=== PATIENT | female | born 1985 | race Hispanic/Latino ===

== ENCOUNTER 2018-09-06 08:59 | Day surgery (SDC) | payer BC ==
[2018-09-05 16:09] VITALS: BP 142/80
[2018-09-05 16:13] LABS: APPEARANCE,URINE CLOUDY (CLEAR); BILIRUBIN,URINE NEGATIVE (NEGATIVE); COLOR,URINE ORANGE (YELLOW); GLUCOSE, URINE (UA) 100 mg/dL (NEGATIVE); KETONES,URINE NEGATIVE (NEGATIVE); LEUKOCYTE ESTERASE ,URINE MODERATE (NEGATIVE); NITRATE,URINE POSITIVE (NEGATIVE); OCCULT BLOOD,URINE LARGE (NEGATIVE); PH,URINE 6.5 (5.0-8.0); PROTEIN,URINE >=300 (NEGATIVE)
[2018-09-05 16:20] LABS: RBC,URINE TNTC /HPF (0-1)
[2018-09-05 16:21] LABS: BACTERIA,URINE Rare /HPF (None Seen); SQUAMOUS EPITHELIAL CELL,UR Rare /HPF (0-2)
[2018-09-06] VITALS (16 sets, daily range): BP systolic 97–129; BP diastolic 59–82
[~2018-09-06] VITALS: Ht 167.6 cm; Wt 96.5 kg
[2018-09-06] MEDS: CEFTRIAXONE SODIUM 1 GM IVP SCH ×2 (09:00→10:45)
[2018-09-06] MEDS ORDERED: ONDANSETRON HCL 4 MG/2 ML VIAL ONE ×2 (09:08→10:47)
[2018-09-06] MEDS ORDERED: MIDAZOLAM HCL 1 MG/ML 2ML VIAL ONE (09:08)
[2018-09-06] MEDS ORDERED: DEXAMETHASONE SOD PHOSPHATE 10MG/ML 1ML VIAL ONE (09:08)
[2018-09-06] MEDS ORDERED: FENTANYL CITRATE PF 50 MCG/1 ML 2ML VIAL ONE ×2 (09:08→10:59)
[2018-09-06] MEDS ORDERED: PROPOFOL 10 MG/ML 20ML VIAL IV ONE (09:08)
[2018-09-06] MEDS ORDERED: LIDOCAINE PF 2% 5ML ABBOJECT ONE (09:08)
[2018-09-06] MEDS ORDERED: LACTATED RINGERS 1000ML 1,000 ML IV ONE (09:26)
[2018-09-06] MEDS ORDERED: TRAM50TA4 PO (09:42)
[2018-09-06] MEDS ORDERED: IOHEXOL-350 50ML VIAL IV ONE (10:02)
[2018-09-06] MEDS ORDERED: ROCURONIUM BROMIDE 10MG/1ML 5ML VL ONE (11:51)
[2018-09-06] MEDS ORDERED: TRAMADOL HCL 50 MG TABLET ONE (13:19)
[2018-09-06] MEDS ORDERED: TRAMADOL HCL 50 MG TABLET PO SCH (13:30)
== END 2018-09-06 13:47 | disposition home or self-care (01) ==
LOC: DAH 08:59
PROVIDERS: ATTEND Urology
DX: N20.2 Calculus of kidney with calculus of ureter (principal); I10 Essential (primary) hypertension; Z98.890 Other specified postprocedural states; Z88.2 Allergy status to sulfonamides; Z88.8 Allergy status to other drugs, medicaments and biological substances; Z82.49 Family history of ischemic heart disease and other diseases of the circulatory system; Z83.3 Family history of diabetes mellitus
CPT/HCPCS: 52356; 74018; 76000; 81001; 81025; 87088; A4218; A4354; A4358; A4600; A4649; A6207; C1758; C1769; C1894; C2617; J0696; J1100; J2001; J2250; J2405 ×2; J2704; J3010 ×2; J3490; J7120 ×2; Q9967

== ENCOUNTER 2019-08-20 21:45 | Inpatient (IN) | payer BC, OTHER ==
[~2019-08-20] VITALS: Ht 167.6 cm; Wt 103.9 kg
[~2019-08-20 21:45] MED LIST: TRAM50TA4 PO
[2019-08-20] MEDS ORDERED: SODIUM CHLORIDE 0.9% 1000ML 1,000 ML IV ONE (22:46)
[2019-08-20] MEDS ORDERED: ONDANSETRON HCL 4 MG/2 ML VIAL ONE (22:46)
[2019-08-20] MEDS ORDERED: MORPHINE SULFATE 4 MG/1ML SYG ONE (22:47)
[2019-08-20 22:55] LABS: APPEARANCE,URINE Cloudy (CLEAR); BILIRUBIN,URINE Negative (NEGATIVE); COLOR,URINE Yellow (YELLOW); GLUCOSE, URINE (UA) Negative (NEGATIVE); KETONES,URINE Negative (NEGATIVE); LEUKOCYTE ESTERASE ,URINE Moderate (NEGATIVE); NITRATE,URINE Negative (NEGATIVE); OCCULT BLOOD,URINE Large (NEGATIVE); PROTEIN,URINE POS 1+ mg/dL (NEGATIVE); UROBILINOGEN,URINE 0.2 mg/dL (0.2-1.0)
[2019-08-20 22:57] LABS: BASOPHILS % (AUTO) 0.2 % (0.0-5.0); CREATININE 1.4 mg/dL (0.5-1.5); HEMATOCRIT 40.4 % (36-48); LYMPHOCYTES % (AUTO) 10.4 % (21.0-51.0); MEAN CORPUSCULAR HGB CONC 34.4 g/dL (32.0-36.0); MEAN CORPUSCULAR VOLUME 90.2 fL (79-99); MONOCYTES % (AUTO) 6.5 % (3.0-13.0); NEUTROPHILS % (AUTO) 81.9 % (40.0-77.0); PLATELET COUNT (AUTO) 296 K/uL (130-400); POTASSIUM 3.7 mmol/L (3.5-5.1); RED BLOOD CELL COUNT(AUTO) 4.48 MIL/uL (4.00-5.50); RED CELL DISTRIBUTION WIDTH 13.5 % (11.0-15.5); WHITE BLOOD COUNT (AUTO) 14.2 K/uL (4.8-10.8)
[2019-08-20 23:01] LABS: ALBUMIN 3.8 g/dL (3.5-5.0); BILIRUBIN,TOTAL 0.4 mg/dL (0.2-1.0); TOTAL PROTEIN, SERUM 7.5 g/dL (6.0-8.3)
[2019-08-20 23:04] LABS: BACTERIA,URINE Rare /HPF (None Seen); MUCUS,URINE Few LPF (None Seen); SQUAMOUS EPITHELIAL CELL,UR Rare /HPF (0-2)
[2019-08-20] MEDS ORDERED: CEFTRIAXONE SODIUM 1 GM ONE (23:43)
[2019-08-20] MEDS ORDERED: KETOROLAC TROMETHAMINE 15MG/ML ONE (23:44)
[2019-08-21] VITALS (22 sets, daily range): BP systolic 108–136; BP diastolic 66–90
[2019-08-21] MEDS ORDERED: ACETAMINOPHEN 325 MG TAB PO PRN ×2 (01:00)
[2019-08-21] MEDS ORDERED: LACTULOSE 20 GM/30 ML UDCUP PO PRN (01:00)
[2019-08-21] MEDS ORDERED: SODIUM CHLORIDE 0.9% 1000ML 1,000 ML IV ONE (02:08)
[2019-08-21] MEDS ORDERED: MORPHINE SULFATE 4 MG/1ML SYG ONE (04:55)
[2019-08-21 04:57] LABS: BASOPHILS % (AUTO) 0.4 % (0.0-5.0); EOSINOPHILS % (AUTO) 0.8 % (0.0-8.0); HEMATOCRIT 35.2 % (36-48); LYMPHOCYTES % (AUTO) 14.4 % (21.0-51.0); MEAN CORPUSCULAR HEMOGLOBIN 31.5 pg (27.0-33.0); MEAN CORPUSCULAR VOLUME 89.9 fL (79-99); MONOCYTES % (AUTO) 6.9 % (3.0-13.0); NEUTROPHILS % (AUTO) 77.5 % (40.0-77.0); PLATELET COUNT (AUTO) 266 K/uL (130-400); RED BLOOD CELL COUNT(AUTO) 3.92 MIL/uL (4.00-5.50); RED CELL DISTRIBUTION WIDTH 13.2 % (11.0-15.5); WHITE BLOOD COUNT (AUTO) 11.4 K/uL (4.8-10.8)
[2019-08-21 05:11] LABS: CREATININE 1.3 mg/dL (0.5-1.5); POTASSIUM 4.1 mmol/L (3.5-5.1)
[2019-08-21] MEDS ORDERED: ONDANSETRON HCL 4 MG/2 ML VIAL ONE ×2 (05:19→19:20)
[2019-08-21] MEDS: FAMOTIDINE/PF 20 MG/2 ML VIAL IV SCH ×2 (08:16→21:53)
[2019-08-21] MEDS: ENOXAPARIN SODIUM 40 MG/0.4 ML SYRINGE SQ SCH (08:17)
[2019-08-21] MEDS: MORPHINE SULFATE 4 MG/1ML SYG IV PRN (08:17)
[2019-08-21] MEDS: SODIUM CHLORIDE 0.9% 1000ML 1,000 ML IV SCH ×3 (08:17→22:04)
--- NOTE | 2019-08-21 11:08 | NUR ---
DCP CM met with pt discussed dc plans. Pt is independent prior to admission, lives at home w/spouse. Denies any equipments/services. Feels safe to go back home, still works and drives, spouse able to assist with transportation and needs as necessary. DC plan to home once stable. CM to cont to follow up. Addendum: 08/21/19 at 1109 by TONNY FREY LVN CM Amended: Links added.
[2019-08-21] MEDS ORDERED: IOHEXOL-350 50ML VIAL IV ONE (19:08)
[2019-08-21] MEDS ORDERED: MIDAZOLAM HCL 1 MG/ML 2ML VIAL ONE (19:20)
[2019-08-21] MEDS ORDERED: LIDOCAINE PF 2% 5ML ABBOJECT ONE (19:20)
[2019-08-21] MEDS ORDERED: PROPOFOL 10 MG/ML 20ML VIAL IV ONE (19:21)
[2019-08-21] MEDS ORDERED: FENTANYL CITRATE PF 50 MCG/1 ML 2ML VIAL ONE (19:21)
[2019-08-21] MEDS: TAMSULOSIN HCL 0.4 MG CAP.ER.24H PO SCH (21:00)
[2019-08-21] MEDS: VANCOMYCIN 1GM+NS 250ML 250 ML IV SCH (21:53)
[2019-08-21] MEDS ORDERED: CEFTRIAXONE SODIUM 1 GM IVP SCH (23:00)
[2019-08-22] VITALS (8 sets, daily range): BP systolic 108–130; BP diastolic 69–85
[2019-08-22] MEDS: MORPHINE SULFATE 4 MG/1ML SYG IV PRN ×5 (02:01→21:22)
[2019-08-22] MEDS: ONDANSETRON HCL 4 MG/2 ML VIAL IV PRN ×3 (02:05→16:45)
[2019-08-22] MEDS: SODIUM CHLORIDE 0.9% 1000ML 1,000 ML IV SCH ×4 (06:17→23:37)
[2019-08-22] MEDS: ENOXAPARIN SODIUM 40 MG/0.4 ML SYRINGE SQ SCH (09:00)
[2019-08-22] MEDS: FAMOTIDINE/PF 20 MG/2 ML VIAL IV SCH ×2 (10:25→21:22)
[2019-08-22] MEDS: VANCOMYCIN 1GM+NS 250ML 250 ML IV SCH (10:25)
[2019-08-22] MEDS: TAMSULOSIN HCL 0.4 MG CAP.ER.24H PO SCH (10:25)
[2019-08-22] MEDS: AMPICILLIN 2GM+NS 100ML 100 ML IV SCH ×2 (15:16→21:22)
[2019-08-23] MEDS: AMPICILLIN 2GM+NS 100ML 100 ML IV SCH ×4 (01:15→18:53)
[2019-08-23 03:40] VITALS: BP 136/85
[2019-08-23] MEDS: SODIUM CHLORIDE 0.9% 1000ML 1,000 ML IV SCH ×2 (06:10→13:08)
[2019-08-23 07:44] VITALS: BP 125/78
[2019-08-23] MEDS: ONDANSETRON HCL 4 MG/2 ML VIAL IV PRN ×2 (07:47→13:24)
[2019-08-23] MEDS: FAMOTIDINE/PF 20 MG/2 ML VIAL IV SCH ×2 (07:47→21:00)
[2019-08-23] MEDS: MORPHINE SULFATE 4 MG/1ML SYG IV PRN ×2 (07:48→13:31)
[2019-08-23] MEDS: TAMSULOSIN HCL 0.4 MG CAP.ER.24H PO SCH (07:48)
[2019-08-23] MEDS: ENOXAPARIN SODIUM 40 MG/0.4 ML SYRINGE SQ SCH (09:00)
[2019-08-23 11:00] VITALS: BP 108/64
--- NOTE | 2019-08-23 11:26 | NUR ---
I have left a message at dr Cantu office in regards to possible d/c or 2nd surgery for removal of stones pending call back
--- NOTE | 2019-08-23 13:37 | NUR ---
lovenox not given due to pt being on her menses and bleeding heavily at this time
[2019-08-23 16:00] VITALS: BP 138/78
[2019-08-23 20:00] VITALS: BP 130/82
[2019-08-23] MEDS: HYDROCODONE/ACETAMINOPHEN 5/325 MG TAB PO PRN (22:21)
[2019-08-24] VITALS (7 sets, daily range): BP systolic 111–163; BP diastolic 67–96
[2019-08-24] MEDS: AMPICILLIN 2GM+NS 100ML 100 ML IV SCH ×4 (00:57→18:23)
[2019-08-24 05:10] LABS: BASOPHILS % (AUTO) 0.8 % (0.0-5.0); EOSINOPHILS % (AUTO) 4.8 % (0.0-8.0); HEMATOCRIT 28.6 % (36-48); LYMPHOCYTES % (AUTO) 26.2 % (21.0-51.0); MEAN CORPUSCULAR HEMOGLOBIN 31.9 pg (27.0-33.0); MEAN CORPUSCULAR HGB CONC 34.6 g/dL (32.0-36.0); MEAN CORPUSCULAR VOLUME 92.1 fL (79-99); MONOCYTES % (AUTO) 10.9 % (3.0-13.0); NEUTROPHILS % (AUTO) 57.3 % (40.0-77.0); NUCLEATED RED BLOOD CELLS 0.1 % (0.0-0.19); PLATELET COUNT (AUTO) 184 K/uL (130-400); WHITE BLOOD COUNT (AUTO) 4.8 K/uL (4.8-10.8)
[2019-08-24 05:11] LABS: POTASSIUM 3.6 mmol/L (3.5-5.1)
[2019-08-24] MEDS: ENOXAPARIN SODIUM 40 MG/0.4 ML SYRINGE SQ SCH (09:00)
[2019-08-24] MEDS: TAMSULOSIN HCL 0.4 MG CAP.ER.24H PO SCH (10:06)
[2019-08-24] MEDS: FAMOTIDINE/PF 20 MG/2 ML VIAL IV SCH ×2 (10:06→21:45)
[2019-08-24] MEDS: HYDROCODONE/ACETAMINOPHEN 5/325 MG TAB PO PRN (10:12)
--- NOTE | 2019-08-24 16:14 | NUR ---
i have spoken to dr kemp and received orders for surgery tomorrow and informed pt which she is agreeable; i have also informed jenaro dimmitt supervisior but she wants to know what time so i have paged dr kemp back to find out time
[2019-08-24] MEDS: SODIUM CHLORIDE 0.9% 1000ML 1,000 ML IV SCH ×2 (18:24→22:17)
[2019-08-24] MEDS: ONDANSETRON HCL 4 MG/2 ML VIAL IV PRN (21:45)
[2019-08-24] MEDS: MORPHINE SULFATE 2 MG/ML 1ML SYG IVP PRN (21:46)
[2019-08-25] VITALS (23 sets, daily range): BP systolic 112–141; BP diastolic 58–86
[2019-08-25] MEDS: AMPICILLIN 2GM+NS 100ML 100 ML IV SCH ×4 (00:29→19:57)
[2019-08-25] MEDS: SODIUM CHLORIDE 0.9% 1000ML 1,000 ML IV SCH ×4 (00:30→19:58)
[2019-08-25 06:12] LABS: BASOPHILS % (AUTO) 0.8 % (0.0-5.0); EOSINOPHILS % (AUTO) 4.8 % (0.0-8.0); HEMATOCRIT 29.1 % (36-48); LYMPHOCYTES % (AUTO) 19.2 % (21.0-51.0); MEAN CORPUSCULAR HEMOGLOBIN 31.4 pg (27.0-33.0); MEAN CORPUSCULAR HGB CONC 34.7 g/dL (32.0-36.0); MEAN CORPUSCULAR VOLUME 90.5 fL (79-99); MONOCYTES % (AUTO) 9.5 % (3.0-13.0); NEUTROPHILS % (AUTO) 65.7 % (40.0-77.0); PLATELET COUNT (AUTO) 227 K/uL (130-400); RED BLOOD CELL COUNT(AUTO) 3.22 MIL/uL (4.00-5.50); WHITE BLOOD COUNT (AUTO) 5.2 K/uL (4.8-10.8)
[2019-08-25 06:15] LABS: POTASSIUM 3.7 mmol/L (3.5-5.1)
[2019-08-25] MEDS ORDERED: IOHEXOL-350 50ML VIAL IV ONE (08:05)
[2019-08-25] MEDS: TAMSULOSIN HCL 0.4 MG CAP.ER.24H PO SCH (08:46)
[2019-08-25] MEDS: FAMOTIDINE/PF 20 MG/2 ML VIAL IV SCH (08:46)
[2019-08-25] MEDS: ENOXAPARIN SODIUM 40 MG/0.4 ML SYRINGE SQ SCH (08:47)
[2019-08-25] MEDS ORDERED: LIDOCAINE PF 2% 5ML ABBOJECT ONE (09:01)
[2019-08-25] MEDS ORDERED: DEXAMETHASONE SOD PHOSPHATE 10MG/ML 1ML VIAL ONE (09:01)
[2019-08-25] MEDS ORDERED: PROPOFOL 10 MG/ML 20ML VIAL IV ONE ×2 (09:02→09:15)
[2019-08-25] MEDS ORDERED: MIDAZOLAM HCL 1 MG/ML 2ML VIAL ONE (09:02)
[2019-08-25] MEDS ORDERED: ONDANSETRON HCL 4 MG/2 ML VIAL ONE ×2 (09:02→11:45)
[2019-08-25] MEDS ORDERED: FENTANYL CITRATE PF 50 MCG/1 ML 2ML VIAL ONE (09:02)
[2019-08-25] MEDS ORDERED: ROCURONIUM 10MG/1ML SYR 10 MG/ML ML ONE (09:16)
--- NOTE | 2019-08-25 11:20 | NUR ---
PATIENT C/O CHEST PAIN O2 SATS 98% ON 2 LITERS TELEMETRY CALLED AND SHOWS NSR 78 , DR JOSEPH NOTIFIED AND SAID TO CONTACT HAS BERNADETTE ALVARENGA NOTIFIED AND IS ON FLOOR WITH PATIENT NOW Addendum: 08/25/19 at 1230 by ROYA PAREDES RN RN PLACED ON WRONG PATIENT
[2019-08-25] MEDS ORDERED: MEPERIDINE-PF 25 MG/ML SYG ONE (11:28)
--- NOTE | 2019-08-25 12:00 | NUR ---
Received report patient s/p stent bilateral stent placement and lithotripsy, vs 138/78 ,p 72 r 18 and temp 97.8, up to bathroom patient states pain mild now will continue to monitor
[2019-08-25] MEDS: MORPHINE SULFATE 2 MG/ML 1ML SYG IVP PRN (12:47)
[2019-08-25] MEDS: HYDROCODONE/ACETAMINOPHEN 5/325 MG TAB PO PRN (17:20)
--- NOTE | 2019-08-25 20:49 | NUR ---
Ptient given discharge instruction and verbalized understanding , iv removed with catheter in tact, patient to follow-up with dr monahan on the at 10am, reviewed medications no questions or concerns at this time , patient walked with and staff to lobby.
== END 2019-08-25 20:45 | disposition home or self-care (01) | DRG 854 ==
LOC: EDH 21:45 → EDHIP 08-21 00:57 → OBSVTOIN 08-21 00:57 → 4DH 08-21 07:37 → 4CH 08-21 17:07
PROVIDERS: ADMIT Internal Medicine; ATTEND Internal Medicine
PROC: 0TC68ZZ Extirpation of Matter from Right Ureter, Via Natural or Artificial Opening Endoscopic (ICD-10-PCS; 2019-08-21)
PROC: 0T788DZ Dilation of Bilateral Ureters with Intraluminal Device, Via Natural or Artificial Opening Endoscopic (ICD-10-PCS; 2019-08-21)
PROC: 0TC78ZZ Extirpation of Matter from Left Ureter, Via Natural or Artificial Opening Endoscopic (ICD-10-PCS; 2019-08-21)
PROC: 0T788DZ Dilation of Bilateral Ureters with Intraluminal Device, Via Natural or Artificial Opening Endoscopic (ICD-10-PCS; 2019-08-21)
PROC: 0TC08ZZ Extirpation of Matter from Right Kidney, Via Natural or Artificial Opening Endoscopic (ICD-10-PCS; principal; 2019-08-21 19:43)
DX: A41.81 Sepsis due to Enterococcus (principal); Q61.5 Medullary cystic kidney; N17.9 Acute kidney failure, unspecified; N13.6 Pyonephrosis; N30.80 Other cystitis without hematuria; I10 Essential (primary) hypertension; B95.2 Enterococcus as the cause of diseases classified elsewhere; E66.9 Obesity, unspecified; E83.59 Other disorders of calcium metabolism; N29 Other disorders of kidney and ureter in diseases classified elsewhere; Z68.37 Body mass index [BMI] 37.0-37.9, adult; Z88.2 Allergy status to sulfonamides; Z88.8 Allergy status to other drugs, medicaments and biological substances; Z72.0 Tobacco use; Z87.442 Personal history of urinary calculi; Z82.49 Family history of ischemic heart disease and other diseases of the circulatory system
CPT/HCPCS: 36415; 74176; 76000; 77002; 80048; 80053; 81001; 81025; 82360; 83690; 85025; 87077; 87088; 87186; A4354; C1758; C1769; C1894; C2617; G0378; J0290; J0696; J1100; J1650; J1885; J2001; J2175; J2250; J2270; J2405; J2704; J3010; J3370; J3490; J7030; Q9967

== ENCOUNTER 2021-06-21 10:37 | Emergency (ER) | payer BC, OTHER ==
[~2021-06-21] VITALS: Ht 167.6 cm; Wt 119.7 kg
[2021-06-21 12:00] LABS: HEMATOCRIT 36.6 % (36-48); MEAN CORPUSCULAR HEMOGLOBIN 27.6 pg (27.0-33.0); MEAN CORPUSCULAR VOLUME 86.3 fL (79-99); PLATELET COUNT (AUTO) 308 K/uL (130-400); RED BLOOD CELL COUNT(AUTO) 4.24 MIL/uL (4.00-5.50); RED CELL DISTRIBUTION WIDTH 15.6 % (11.0-15.5); WHITE BLOOD COUNT (AUTO) 9.7 K/uL (4.8-10.8)
[2021-06-21 12:09] LABS: CREATININE 1.1 mg/dL (0.5-1.5); POTASSIUM 4.1 mmol/L (3.5-5.1)
[2021-06-21 12:14] LABS: ALBUMIN 3.5 g/dL (3.5-5.0); BILIRUBIN,TOTAL 0.4 mg/dL (0.2-1.0); TOTAL PROTEIN, SERUM 7.5 g/dL (6.0-8.3)
[2021-06-21 12:46] LABS: BASOPHILS % (MANUAL) 1 % (0-2); EOSINOPHILS % (MANUAL) 5 % (1-6); LYMPHOCYTES % (MANUAL) 22 % (22-44); MAN.DIFF COMMENT-IMPRESSION MANUAL DIFFERENTIAL; MONOCYTES % (MANUAL) 5 % (2-9); SEGMENTED NEUTROPHILS % 67 % (40-70)
[2021-06-21 12:47] LABS: PLATELET MORPHOLOGY COMMENT ADEQUATE
[2021-06-21 14:31] VITALS: BP 130/72
[2021-06-21 14:36] LABS: APPEARANCE,URINE Clear (CLEAR); BILIRUBIN,URINE Negative (NEGATIVE); COLOR,URINE Yellow (YELLOW); GLUCOSE, URINE (UA) Negative (NEGATIVE); KETONES,URINE Trace mg/dL (NEGATIVE); LEUKOCYTE ESTERASE ,URINE Trace (NEGATIVE); NITRATE,URINE Negative (NEGATIVE); OCCULT BLOOD,URINE Small (NEGATIVE); PROTEIN,URINE Negative (NEGATIVE)
[2021-06-21 14:44] LABS: BACTERIA,URINE Few /HPF (None Seen); MUCUS,URINE Few LPF (None Seen); SQUAMOUS EPITHELIAL CELL,UR Few /HPF (0-2)
[2021-06-21] MEDS ORDERED: CEFTRIAXONE 1G VIAL IM ONE (15:30)
[2021-06-21] MEDS ORDERED: CEPH500B PO (17:18)
[2021-06-21 17:27] VITALS: BP 131/91
== END 2021-06-21 17:28 | disposition home or self-care (01) ==
LOC: EDH 10:37
DX: O20.0 Threatened abortion (principal); O23.41 Unspecified infection of urinary tract in pregnancy, first trimester; I10 Essential (primary) hypertension; Z88.2 Allergy status to sulfonamides; Z88.8 Allergy status to other drugs, medicaments and biological substances; Z3A.01 Less than 8 weeks gestation of pregnancy
CPT/HCPCS: 36415; 76801; 80053; 81001; 84702; 85025; 86900; 86901; 96372; 99284; J0696

== ENCOUNTER 2021-12-22 00:30 | Inpatient (IN) | payer BC, OTHER ==
[~2021-12-22] VITALS: Ht 167.6 cm; Wt 117.9 kg
[~2021-12-22 00:30] MED LIST changes: +CEPH500B PO; -TRAM50TA4 PO
[2021-12-22 01:25] LABS: APPEARANCE,URINE Clear (CLEAR); BILIRUBIN,URINE Negative (NEGATIVE); COLOR,URINE Yellow (YELLOW); GLUCOSE, URINE (UA) Negative (NEGATIVE); KETONES,URINE Negative (NEGATIVE); LEUKOCYTE ESTERASE ,URINE Trace (NEGATIVE); NITRATE,URINE Negative (NEGATIVE); OCCULT BLOOD,URINE Moderate (NEGATIVE); PROTEIN,URINE Negative (NEGATIVE)
[2021-12-22 01:39] LABS: BACTERIA,URINE Few /HPF (None Seen); RBC,URINE 0-1 /HPF (0-1); SQUAMOUS EPITHELIAL CELL,UR Few /HPF (0-2)
[2021-12-22 02:16] LABS: BASOPHILS % (AUTO) 0.3 % (0.0-5.0); EOSINOPHILS % (AUTO) 0.7 % (0.0-8.0); HEMATOCRIT 32.3 % (36-48); LYMPHOCYTES % (AUTO) 8.7 % (21.0-51.0); MEAN CORPUSCULAR HEMOGLOBIN 28.7 pg (27.0-33.0); MEAN CORPUSCULAR HGB CONC 31.6 g/dL (32.0-36.0); MEAN CORPUSCULAR VOLUME 90.7 fL (79-99); MONOCYTES % (AUTO) 5.2 % (3.0-13.0); NEUTROPHILS % (AUTO) 84.2 % (40.0-77.0); PLATELET COUNT (AUTO) 220 K/uL (130-400); RED BLOOD CELL COUNT(AUTO) 3.56 MIL/uL (4.00-5.50); RED CELL DISTRIBUTION WIDTH 16.5 % (11.0-15.5); WHITE BLOOD COUNT (AUTO) 13.8 K/uL (4.8-10.8)
[2021-12-22] MEDS ORDERED: ONDANSETRON 4MG INJ ONE (02:16)
[2021-12-22] MEDS ORDERED: MORPHINE 4 MG SYG ONE (02:16)
[2021-12-22 02:25] LABS: CREATININE 1.2 mg/dL (0.5-1.5)
[2021-12-22 02:29] LABS: ALBUMIN 2.7 g/dL (3.5-5.0); BILIRUBIN,TOTAL 0.3 mg/dL (0.2-1.0)
[2021-12-22] MEDS ORDERED: 0.9% NACL 500ML IV.SOLN 500 ML IV ONE (02:30)
[2021-12-22] MEDS ORDERED: ONDANSETRON 4MG INJ IVP ONE (02:30)
[2021-12-22] MEDS ORDERED: MORPHINE 4 MG SYG IV ONE (02:30)
[2021-12-22] MEDS ORDERED: ONDANSETRON 4MG INJ IVP PRN (05:30)
[2021-12-22] MEDS: MORPHINE 4 MG SYG IV PRN ×2 (08:10→21:12)
[2021-12-22 09:44] VITALS: BP 116/75
[2021-12-22] MEDS ORDERED: POTA15TA11 PO (10:26)
[2021-12-22] MEDS ORDERED: PREN-154 PO (10:26)
[2021-12-22] MEDS ORDERED: LABE100T5 PO (10:26)
[2021-12-22] MEDS ORDERED: ASPI-1197 PO (10:26)
[2021-12-22] MEDS ORDERED: FAMO-136 PO (10:26)
[2021-12-22 11:18] VITALS: BP 99/65
[2021-12-22] MEDS: LACTATED RINGERS 1000ML 1,000 ML IV SCH ×2 (12:16→20:02)
[2021-12-22 16:34] VITALS: BP 133/63
[2021-12-22] MEDS ORDERED: WITCH HAZEL 1 PAD TP PRN (18:00)
[2021-12-22] MEDS ORDERED: HYDROCORTISONE/PRAMOXINE 10 GM FOAM RC PRN (18:00)
[2021-12-22] MEDS ORDERED: PHARMACY COMMUNICATION MISC SCH (18:00)
[2021-12-22 19:24] VITALS: BP 114/71
[2021-12-22] MEDS: LABETALOL HCL 100 MG TABLET PO SCH ×2 (20:03→21:00)
[2021-12-22 23:00] VITALS: BP 113/66
[2021-12-23 02:48] VITALS: BP 118/69
[2021-12-23] MEDS: LACTATED RINGERS 1000ML 1,000 ML IV SCH ×2 (03:58→14:11)
[2021-12-23] MEDS: MORPHINE 4 MG SYG IV PRN (06:52)
[2021-12-23 07:19] VITALS: BP 109/59
[2021-12-23] MEDS: LABETALOL HCL 100 MG TABLET PO SCH (08:58)
[2021-12-23 11:15] VITALS: BP 113/60
[2021-12-23] MEDS ORDERED: LACTULOSE 20 GM/30 ML UDCUP PO ONE (15:00)
[2021-12-23 16:44] VITALS: BP 113/65
== END 2021-12-23 17:45 | disposition home or self-care (01) | DRG 832 ==
LOC: EDH 00:30 → OBSVTOIN 00:31 → WSH 00:31 → LDH 08:17 → WSH 10:00
PROVIDERS: ADMIT Obstetrics & Gynecology; ATTEND Obstetrics & Gynecology
DX: O16.3 Unspecified maternal hypertension, third trimester (principal); O26.833 Pregnancy related renal disease, third trimester; N13.30 Unspecified hydronephrosis; Q61.5 Medullary cystic kidney; O99.891 Other specified diseases and conditions complicating pregnancy; O21.2 Late vomiting of pregnancy; E83.59 Other disorders of calcium metabolism; O99.283 Endocrine, nutritional and metabolic diseases complicating pregnancy, third trimester; Z87.442 Personal history of urinary calculi; Z3A.36 36 weeks gestation of pregnancy; Z87.440 Personal history of urinary (tract) infections; Z88.2 Allergy status to sulfonamides; Z88.8 Allergy status to other drugs, medicaments and biological substances
CPT/HCPCS: 36415; 76770; 76805; 80053; 81001; 85025; 96360; 96361; 96372; G0378; J2270; J2405; J7120